=== PATIENT | male | born 1960 | race Caucasian/White ===

== ENCOUNTER 2020-10-23 09:54 | Observation (INO) | payer BC ==
[2020-10-23] MEDS ORDERED: ASPIRIN 81 MG PO STA (10:14)
--- NOTE | 2020-10-23 10:34 | ED ---
General Adult HPI - General Chief complaint: Chest Pain Stated complaint: burning in chest Time Seen by Provider: 10/23/20 10:02 Source: patient, RN notes reviewed Mode of arrival: ambulatory Limitations: no limitations - History of Present Illness Initial comments: This a 59-year-old male presents emergency Department chief complaint of progressive chest pain. Patient states he's been having intermittent symptoms states he's had 4 episodes morning. He states that when he comes that the burning sensation in his chest and becomes very diaphoretic. Patient states nonradiating type pain. Patient has no prior coronary disease including risk factors hyperlipidemia hypertension diabetes smoking history. Patient states is on no current medications. Patient did have blood work and EKG by primary care physician yesterday and was told that he did not have a heart attack. Patient denies any abdominal pain denies any nausea vomiting take swelling leg pain. Patient took 2 baby aspirin this morning. - Related Data Allergies Allergy/AdvReac Type Severity Reaction Status Date / Time No Known Allergies Allergy Verified 10/23/20 10:01 Review of Systems ROS Statement: Those systems with pertinent positive or pertinent negative responses have been documented in the HPI. ROS Other: All systems not noted in ROS Statement are negative. Past Medical History Past Medical History: No Reported History History of Any Multi-Drug Resistant Organisms: None Reported Past Surgical History: No Surgical Hx Reported Past Psychological History: No Psychological Hx Reported Smoking Status: Never smoker Past Alcohol Use History: None Reported, Occasional Past Drug Use History: None Reported General Exam Limitations: no limitations General appearance: alert, in no apparent distress Head exam: Present: atraumatic, normocephalic, normal inspection Eye exam: Present: normal appearance, PERRL, EOMI. Absent: scleral icterus, conjunctival injection, periorbital swelling ENT exam: Present: normal exam, normal oropharynx, mucous membranes moist Neck exam: Present: normal inspection, full ROM. Absent: tenderness, meningismus, lymphadenopathy Respiratory exam: Present: normal lung sounds bilaterally. Absent: respiratory distress, wheezes, rales, rhonchi, stridor Cardiovascular Exam: Present: regular rate, normal rhythm, normal heart sounds. Absent: systolic murmur, diastolic murmur, rubs, gallop, clicks GI/Abdominal exam: Present: soft, normal bowel sounds. Absent: distended, tenderness, guarding, rebound, rigid Back exam: Absent: CVA tenderness (R), CVA tenderness (L) Neurological exam: Present: alert, oriented X3 Skin exam: Present: warm, dry, intact, normal color. Absent: rash Course Vital Signs 10/23/20 10/23/20 09:57 11:07 Temperature 98 F Pulse Rate 72 61 Respiratory 18 18 Rate Blood Pressure 152/70 122/77 O2 Sat by Pulse 99 98 Oximetry EKG Findings - EKG Comments: EKG Findings:: EKG 4-10:17 sinus rhythm with noted PAC, rate of 67 HI 1:30 QRS 86 QT/QTC 42/424 Medical Decision Making - Medical Decision Making Patient's labwork reviewed patient's d-dimer and troponin are negative there no acute EKG changes though there is concern for underlying cardiac disease. Patient will be admitted for cardiac evaluation probable stress test with echocardiogram. - Lab Data Result diagrams: 10/23/20 10:33 10/23/20 10:33 Lab Results 10/23/20 10/23/20 10/23/20 Range/Units 10:33 10:33 10:33 WBC 7.1 (3.8-10.6) k/uL RBC 5.44 (4.30-5.90) m/uL Hgb 17.1 (13.0-17.5) gm/dL Hct 51.0 (39.0-53.0) % MCV 93.7 (80.0-100.0) fL MCH 31.5 (25.0-35.0) pg MCHC 33.6 (31.0-37.0) g/dL RDW 13.0 (11.5-15.5) % Plt Count 219 (150-450) k/uL MPV 7.7 Neutrophils % 75 % Lymphocytes % 15 % Monocytes % 6 % Eosinophils % 2 % Basophils % 1 % Neutrophils # 5.3 (1.3-7.7) k/uL Lymphocytes # 1.1 (1.0-4.8) k/uL Monocytes # 0.4 (0-1.0) k/uL Eosinophils # 0.1 (0-0.7) k/uL Basophils # 0.0 (0-0.2) k/uL PT 9.9 (9.0-12.0) sec INR 0.9 (<1.2) APTT 22.1 (22.0-30.0) sec D-Dimer 0.28 (<0.60) mg/L FEU Sodium 139 (137-145) mmol/L Potassium 4.3 (3.5-5.1) mmol/L Chloride 106 (98-107) mmol/L Carbon Dioxide 23 (22-30) mmol/L Anion Gap 10 mmol/L BUN 19 (9-20) mg/dL Creatinine 0.86 (0.66-1.25) mg/dL Est GFR (CKD-EPI)AfAm >90 (>60 ml/min/1.73 sqM) Est GFR (CKD-EPI)NonAf >90 (>60 ml/min/1.73 sqM) Glucose 103 H (74-99) mg/dL Calcium 9.2 (8.4-10.2) mg/dL Magnesium 2.1 (1.6-2.3) mg/dL Total Bilirubin 0.6 (0.2-1.3) mg/dL AST 31 (17-59) U/L ALT 30 (4-49) U/L Alkaline Phosphatase 73 (38-126) U/L Troponin I (0.000-0.034) ng/mL NT-Pro-B Natriuret Pep pg/mL Total Protein 7.1 (6.3-8.2) g/dL Albumin 4.4 (3.5-5.0) g/dL Lipase 189 (23-300) U/L 10/23/20 10/23/20 Range/Units 10:33 10:33 WBC (3.8-10.6) k/uL RBC (4.30-5.90) m/uL Hgb (13.0-17.5) gm/dL Hct (39.0-53.0) % MCV (80.0-100.0) fL MCH (25.0-35.0) pg MCHC (31.0-37.0) g/dL RDW (11.5-15.5) % Plt Count (150-450) k/uL MPV Neutrophils % % Lymphocytes % % Monocytes % % Eosinophils % % Basophils % % Neutrophils # (1.3-7.7) k/uL Lymphocytes # (1.0-4.8) k/uL Monocytes # (0-1.0) k/uL Eosinophils # (0-0.7) k/uL Basophils # (0-0.2) k/uL PT (9.0-12.0) sec INR (<1.2) APTT (22.0-30.0) sec D-Dimer (<0.60) mg/L FEU Sodium (137-145) mmol/L Potassium (3.5-5.1) mmol/L Chloride (98-107) mmol/L Carbon Dioxide (22-30) mmol/L Anion Gap mmol/L BUN (9-20) mg/dL Creatinine (0.66-1.25) mg/dL Est GFR (CKD-EPI)AfAm (>60 ml/min/1.73 sqM) Est GFR (CKD-EPI)NonAf (>60 ml/min/1.73 sqM) Glucose (74-99) mg/dL Calcium (8.4-10.2) mg/dL Magnesium (1.6-2.3) mg/dL Total Bilirubin (0.2-1.3) mg/dL AST (17-59) U/L ALT (4-49) U/L Alkaline Phosphatase (38-126) U/L Troponin I <0.012 (0.000-0.034) ng/mL NT-Pro-B Natriuret Pep 212 pg/mL Total Protein (6.3-8.2) g/dL Albumin (3.5-5.0) g/dL Lipase (23-300) U/L Disposition Clinical Impression: Chest pain Disposition: ADMITTED IP TO THIS [facility] Referrals: Chi Marquez DO [Primary Care Provider] - 1-2 days
[2020-10-23 10:42] LABS: Basophils % (A) 1 %; Eosinophils # (A) 0.1 k/uL (0-0.7); Eosinophils % (A) 2 %; HGB 17.1 gm/dL (13.0-17.5); Lymphocytes # (A) 1.1 k/uL (1.0-4.8); Lymphocytes % (A) 15 %; MCH 31.5 pg (25.0-35.0); MCHC 33.6 g/dL (31.0-37.0); MCV 93.7 fL (80.0-100.0); Mean Platelet Volume 7.7; Monocytes # (A) 0.4 k/uL (0-1.0); Monocytes % (A) 6 %; Neutrophils # (A) 5.3 k/uL (1.3-7.7); Neutrophils % (A) 75 %; Platelet Count 219 k/uL (150-450); RBC 5.44 m/uL (4.30-5.90); WBC 7.1 k/uL (3.8-10.6)
--- NOTE | 2020-10-23 10:45 | XR ---
EXAMINATION TYPE: XR chest 2V DATE OF EXAM: 10/23/2020 COMPARISON: NONE HISTORY: Chest pain and burning sensation for one week. TECHNIQUE: Frontal and lateral views of the chest are obtained. FINDINGS: There is no focal air space opacity, pleural effusion, or pneumothorax seen. The cardiac silhouette size is within normal limits. Overlying EKG leads. The osseous structures are intact. IMPRESSION: No acute cardiopulmonary process.
[2020-10-23 10:53] LABS: ALT 30 U/L (4-49); AST 31 U/L (17-59); African American GFR (CKD) >90 (>60 ml/min/1.73 sqM); Albumin 4.4 g/dL (3.5-5.0); Alkaline Phosphatase 73 U/L (38-126); Anion Gap 10 mmol/L; Blood Urea Nitrogen 19 mg/dL (9-20); Calcium 9.2 mg/dL (8.4-10.2); Carbon Dioxide 23 mmol/L (22-30); Chloride 106 mmol/L (98-107); Glucose 103 mg/dL (74-99); Lipase 189 U/L (23-300); Magnesium 2.1 mg/dL (1.6-2.3); Non-African American GFR(CKD) >90 (>60 ml/min/1.73 sqM); Potassium 4.3 mmol/L (3.5-5.1); Sodium 139 mmol/L (137-145); Total Bilirubin 0.6 mg/dL (0.2-1.3); Total Protein 7.1 g/dL (6.3-8.2)
[2020-10-23 10:55] LABS: D-Dimer 0.28 mg/L FEU (<0.60); INR 0.9 (<1.2); Partial Thromboplastin Time 22.1 sec (22.0-30.0); Prothrombin Time 9.9 sec (9.0-12.0)
[2020-10-23] MEDS ORDERED: NITROGLYCERIN SL TABS 0.4 MG TAB SUBLINGUAL PRN (11:19)
[2020-10-23] MEDS ORDERED: HEPARIN SODIUM,PORCINE 5,000 UNIT/ML 1 ML VIAL IV ONE (11:19)
[2020-10-23] MEDS ORDERED: HEPARIN SODIUM,PORCINE 5,000 UNIT/ML 1 ML VIAL IV PRN (11:19)
[2020-10-23] MEDS ORDERED: HEPARIN SOD,PORK IN 0.45% NACL 25,000 UNIT in 0.45% NACL 1 250ML.BAG IV SCH (11:30)
--- NOTE | 2020-10-23 14:02 | P.CRDCN ---
History of Present Illness Consult date: 10/23/20 History of present illness: CHIEF COMPLAINT: Chest pain HISTORY OF PRESENT ILLNESS: This is a 59-year-old male with no significant past medical history. 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 We have been asked to see the patient in consultation for chest pain. Patient examined at the bedside. Patient states he began having chest pain last while at work. He describes the pain as a burning sensation in the middle of his chest. He denies any shortness of breath. He denies any radiation of the pain. Denies any nausea or vomiting. He does report spitting up some phlegm when he has these episodes. He reports taking Tums occasionally over the past week which has not helped his symptoms. He states the pain is not associated with food. Patient states he went to see his primary care physician yesterday who completed an EKG and was told it was unremarkable. He was started on omeprazole and scheduled for an outpatient stress test next week. Patient states he woke up this morning at 4 AM with a significant burning sensation in the middle of his chest. The patient states he proceeded to go to work this morning down in [place] and he had another episode of burning in his chest so he decided to come home from work and came to the hospital for further evaluation. At the time of exam, the patient is not having any chest pain. The patient denies any family history of coronary artery disease. He is a non-smoker. He reports minimal alcohol use. DIAGNOSTICS: EKG reveals sinus mechanism with no signs of acute ischemia Chest xray negative for acute process Laboratory data: WBC 7.1. Hemoglobin 17.1. Platelet count 219. D-dimer 0.28. Sodium 139. Potassium 4.3. BUN 19. Creatinine 0.86. Magnesium 2.1. Troponin negative 1. BNP 212. Current home cardiac medications include none REVIEW OF SYSTEMS: At the time of my exam: CONSTITUTIONAL: Denies fever or chills. HEENT: Denies blurred vision, vision changes, or eye pain. Denies hemoptysis CARDIOVASCULAR: Denies chest pain, orthopnea, PND or palpitations RESPIRATORY: No shortness of breath. GASTROINTESTINAL: Denies abdominal pain. Denies nausea or vomiting. HEMATOLOGIC: Denies bleeding disorders. GENITOURINARY: Denies any blood in urine. SKIN: Denies pruitis. Denies rash. PHYSICAL EXAM: VITAL SIGNS: Reviewed. GENERAL: Well-developed in no acute distress. HEENT: Head is normocephalic. Pupils are equal, round. Sclerae anicteric. Mucous membranes of the mouth are moist. Neck supple. No JVD or thyromegaly LUNGS: Respirations even and unlabored. Lungs essentially clear to auscultation bilaterally. HEART: Regular rate and rhythm. S1 and S2 heard. ABDOMEN: Soft. Nondistended. Nontender. EXTREMITIES: Normal range of motion. No clubbing or cyanosis. Peripheral pulses intact. No lower extremity edema NEUROLOGIC: Awake and alert. Oriented x 3. ASSESSMENT: Chest pain, atypical for angina PLAN: Continue IV heparin Trend troponin levels Obtain 2-D echo to assess cardiac structure and function If troponin levels continue to be negative, patient will be scheduled for stress echo tomorrow If stress test is negative, recommend GI workup Further recommendations pending patient course Nurse practitioner note has been reviewed by physician. Signing provider agrees with the documented findings, assessment, and plan of care. 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 Medications and Allergies Home Medications Medication Instructions Recorded Confirmed Type Aspirin EC [Ecotrin Low Dose] 162 mg PO AC-BRKFST 10/23/20 10/23/20 History Omeprazole 40 mg PO AC-BRKFST 10/23/20 10/23/20 History Allergies Allergy/AdvReac Type Severity Reaction Status Date / Time No Known Allergies Allergy Verified 10/23/20 11:18 Physical Exam Vitals: Vital Signs Temp Pulse Resp BP Pulse Ox 10/23/20 11:13 67 18 122/77 98 10/23/20 11:07 61 18 122/77 98 10/23/20 09:57 98 F 72 18 152/70 99 Intake and Output 10/22/20 10/23/20 10/23/20 22:59 06:59 14:59 Other: Weight 95.254 kg Results 10/23/20 10:33 10/23/20 10:33 Cardiac Enzymes 10/23/20 10/23/20 Range/Units 10:33 10:33 AST 31 (17-59) U/L Troponin I <0.012 (0.000-0.034) ng/mL Coagulation 10/23/20 Range/Units 10:33 PT 9.9 (9.0-12.0) sec APTT 22.1 (22.0-30.0) sec CBC 10/23/20 Range/Units 10:33 WBC 7.1 (3.8-10.6) k/uL RBC 5.44 (4.30-5.90) m/uL Hgb 17.1 (13.0-17.5) gm/dL Hct 51.0 (39.0-53.0) % Plt Count 219 (150-450) k/uL Comprehensive Metabolic Panel 10/23/20 Range/Units 10:33 Sodium 139 (137-145) mmol/L Potassium 4.3 (3.5-5.1) mmol/L Chloride 106 (98-107) mmol/L Carbon Dioxide 23 (22-30) mmol/L BUN 19 (9-20) mg/dL Creatinine 0.86 (0.66-1.25) mg/dL Glucose 103 H (74-99) mg/dL Calcium 9.2 (8.4-10.2) mg/dL AST 31 (17-59) U/L ALT 30 (4-49) U/L Alkaline Phosphatase 73 (38-126) U/L Total Protein 7.1 (6.3-8.2) g/dL Albumin 4.4 (3.5-5.0) g/dL Current Medications Generic Name Dose Route Start Last Admin Trade Name Freq PRN Reason Stop Dose Admin Aspirin 325 mg 10/24/20 09:00 Aspirin 325 Mg Tab PO DAILY DEMOND Heparin Sodium (Porcine) 0 unit 10/23/20 11:19 Heparin Sodium,Porcine 5,000 Unit/Ml 1 Ml Vial IV Q6HR PRN Low PTT Protocol Heparin Sodium/Sodium Chloride 250 mls @ 10 mls/hr 10/23/20 11:30 10/23/20 11:41 25,000 unit/ Sodium Chloride IV 10.498 units/kg/hr .Q24H DEMOND 10 mls/hr Administration Protocol 10.498 UNITS/KG/HR Nitroglycerin 0.4 mg 10/23/20 11:19 Nitroglycerin Sl Tabs 0.4 Mg Tab SUBLINGUAL Q5M PRN Chest Pain Intake and Output 10/22/20 10/23/20 10/23/20 22:59 06:59 14:59 Other: Weight 95.254 kg Patient Weight 10/24/20 06:59 Weight 95.254 kg 10/23/20 10:33 10/23/20 10:33
--- NOTE | 2020-10-23 14:14 | P.HPIM ---
History of Present Illness Patient is a pleasant 59-year-old male came in with complaints of chest pain patient had a chest pain going on for about 4 days with varying severity mostly retrosternal burning sensation and epigastric burning sensation nonradiating, no associated nausea or vomiting. Patient chest pain is not associated with food nonpleuritic in nature patient used Tums in the past with some relief. Patient started having the same pain today morning when he woke up and then at his work. Patient denied any fever chills patient denied any cough. Before echo episode is associated with diaphoresis. Patient had an EKG which did not show any significant abnormality chest x-ray did not show any pneumonia. Denies any significant family history of carotid disease and patient is not a smoker. Review of Systems REVIEW OF SYSTEMS: CONSTITUTIONAL: No fever, no malaise, no fatigue. HEENT: No recent visual problems or hearing problems. Denied any sore throat. CARDIOVASCULAR: No orthopnea, PND, no palpitations, no syncope. PULMONARY: No shortness of breath, no cough, no hemoptysis. GASTROINTESTINAL: No diarrhea, no nausea, no vomiting, no abdominal pain. NEUROLOGICAL: No headaches, no weakness, no numbness. HEMATOLOGICAL: Denies any bleeding or petechiae. GENITOURINARY: Denies any burning micturition, frequency, or urgency. MUSCULOSKELETAL/RHEUMATOLOGICAL: Denies any joint pain, swelling, or any muscle pain. ENDOCRINE: Denies any polyuria or polydipsia. The rest of the 14-point review of systems is negative. Past Medical History Past Medical History: No Reported History History of Any Multi-Drug Resistant Organisms: None Reported Past Surgical History: No Surgical Hx Reported Additional Past Surgical History / Comment(s): tonsils out as child, Had Colonoscopys with Dr Santiago Past Anesthesia/Blood Transfusion Reactions: No Reported Reaction Past Psychological History: No Psychological Hx Reported Smoking Status: Never smoker Past Alcohol Use History: None Reported, Occasional Past Drug Use History: None Reported - Past Family History Mother Family Medical History: Cancer Additional Family Medical History / Comment(s): both breasts removed Father Additional Family Medical History / Comment(s): killed Auto accident by drunk flatbed driver Medications and Allergies Home Medications Medication Instructions Recorded Confirmed Type Aspirin EC [Ecotrin Low Dose] 162 mg PO AC-BRKFST 10/23/20 10/23/20 History Omeprazole 40 mg PO AC-BRKFST 10/23/20 10/23/20 History Allergies Allergy/AdvReac Type Severity Reaction Status Date / Time No Known Allergies Allergy Verified 10/23/20 11:18 Physical Exam Vitals: Vital Signs Temp Pulse Pulse Resp BP BP Pulse Ox 10/23/20 12:34 98.4 F 63 16 136/87 97 10/23/20 12:25 97.4 F L 64 18 177/104 100 10/23/20 11:13 67 18 122/77 98 10/23/20 11:07 61 18 122/77 98 10/23/20 09:57 98 F 72 18 152/70 99 Intake and Output 10/22/20 10/23/20 10/23/20 22:59 06:59 14:59 Other: Weight 95.254 kg PHYSICAL EXAMINATION: GENERAL: The patient is alert and oriented x3, not in any acute distress. Well developed, well nourished. HEENT: Pupils are round and equally reacting to light. EOMI. No scleral icterus. No conjunctival pallor. Normocephalic, atraumatic. No pharyngeal erythema. No thyromegaly. CARDIOVASCULAR: S1 and S2 present. No murmurs, rubs, or gallops. PULMONARY: Chest is clear to auscultation, no wheezing or crackles. ABDOMEN: Soft, nontender, nondistended, normoactive bowel sounds. No palpable organomegaly. MUSCULOSKELETAL: No joint swelling or deformity. EXTREMITIES: No cyanosis, clubbing, or pedal edema. NEUROLOGICAL: Gross neurological examination did not reveal any focal deficits. SKIN: No rashes. Results CBC & Chem 7: 10/23/20 10:33 10/23/20 10:33 Labs: Abnormal Lab Results - Last 24 Hours (Table) 10/23/20 Range/Units 10:33 Glucose 103 H (74-99) mg/dL Thrombosis Risk Factor Assmnt - Choose All That Apply Each Factor Represents 1 point: Obesity (BMI >25) Other Risk Factors: Yes Each Risk Factor Represents 2 Points: Age 61-74 years Thrombosis Risk Factor Assessment Total Risk Factor Score: 3 Thrombosis Risk Factor Assessment Level: Moderate Risk Assessment and Plan Plan: - chest pain: We will rule out acute coronary syndromes patient will undergo stress test tomorrow, considering the nature the chest pain patient will be started on Protonix IV as the other differential being Peptic ulcer disease. -Rule out pulmonary embolism with d-dimer which was negative -Obesity
[2020-10-23] MEDS: PANTOPRAZOLE 40 MG/10 ML VIAL IVP SCH (20:05)
[2020-10-24 06:14] LABS: Mean Platelet Volume 8.3; Platelet Count 207 k/uL (150-450)
[2020-10-24] MEDS: PANTOPRAZOLE 40 MG/10 ML VIAL IVP SCH ×2 (07:27→20:51)
[2020-10-24] MEDS ORDERED: PANTOPRAZOLE 40 MG TABLET PO SCH (07:30)
[2020-10-24] MEDS ORDERED: ASPIRIN 81 MG PO SCH (09:00)
[2020-10-24] MEDS ORDERED: ASPIRIN 325 MG TAB PO SCH (09:00)
[2020-10-24 10:49] LABS: Chol/HDL Ratio 3.76
[2020-10-24] MEDS ORDERED: HEPARIN SODIUM,PORCINE 5,000 UNIT/ML 1 ML VIAL IV ONE (11:42)
[2020-10-24] MEDS ORDERED: HEPARIN SODIUM,PORCINE 5,000 UNIT/ML 1 ML VIAL IV PRN (11:42)
[2020-10-24] MEDS ORDERED: HEPARIN SOD,PORK IN 0.45% NACL 25,000 UNIT in 0.45% NACL 1 250ML.BAG IV SCH (11:45)
[2020-10-24] MEDS ORDERED: ALPRAZolam 0.25 MG TAB PO PRN (11:48)
[2020-10-24] MEDS ORDERED: ASPIRIN 325 MG TAB PO STA (11:48)
[2020-10-24] MEDS ORDERED: ALPRAZolam 0.5 MG TAB PO PRN (11:48)
[2020-10-24] MEDS ORDERED: SODIUM CHLORIDE 0.9% 1,000 ML in EMPTY BAG 1 BAG IV ONE (11:48)
[2020-10-24] MEDS ORDERED: NITROGLYCERIN SL TABS 0.4 MG TAB SUBLINGUAL PRN ×2 (11:48→13:37)
[2020-10-24] MEDS ORDERED: ATORVASTATIN 80 MG TAB PO STA (11:48)
[2020-10-24] MEDS ORDERED: LIDOCAINE 1% INJ 10MG/ML (20 ML MDV) ONE (12:18)
[2020-10-24] MEDS ORDERED: VERAPAMIL 2.5 MG/ML 2 ML AMP ONE (12:18)
[2020-10-24 12:25] LABS: Basophils % (A) 1 %; Eosinophils # (A) 0.1 k/uL (0-0.7); Eosinophils % (A) 1 %; HCT 50.7 % (39.0-53.0); HGB 16.4 gm/dL (13.0-17.5); Lymphocytes # (A) 0.9 k/uL (1.0-4.8); Lymphocytes % (A) 13 %; MCH 30.9 pg (25.0-35.0); MCHC 32.5 g/dL (31.0-37.0); MCV 95.3 fL (80.0-100.0); Monocytes # (A) 0.4 k/uL (0-1.0); Monocytes % (A) 5 %; Neutrophils # (A) 5.7 k/uL (1.3-7.7); Neutrophils % (A) 79 %; Platelet Count 225 k/uL (150-450); RBC 5.32 m/uL (4.30-5.90); RDW 13.5 % (11.5-15.5); WBC 7.2 k/uL (3.8-10.6)
--- NOTE | 2020-10-24 12:27 | P.PN ---
Subjective Progress Note Date: 10/24/20 CHIEF COMPLAINT: Chest pain HISTORY OF PRESENT ILLNESS: 10/23/2020 This is a 59-year-old male with no significant past medical history. 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 We have been asked to see the patient in consultation for chest pain. Patient examined at the bedside. Patient states he began having chest pain last while at work. He describes the pain as a burning sensation in the middle of his chest. He denies any shortness of b reath. He denies any radiation of the pain. Denies any nausea or vomiting. He does report spitting up some phlegm when he has these episodes. He reports taking Tums occasionally over the past week which has not helped his symptoms. He states the pain is not associated with food. Patient states he went to see his primary care physician yesterday who completed an EKG and was told it was unremarkable. He was started on omeprazole and scheduled for an outpatient stress test next week. Patient states he woke up this morning at 4 AM with a significant burning sensation in the middle of his chest. The patient states he proceeded to go to work this morning down in [place] and he had another episode of burning in his chest so he decided to come home from work and came to the hospital for further evaluation. At the time of exam, the patient is not having any chest pain. The patient denies any family history of coronary artery disease. He is a non-smoker. He reports minimal alcohol use. 10/24/2020 Patient examined this morning at the bedside. Patient denies chest pain or pressure. Denies shortness of breath. Troponins negative x 3. PHYSICAL EXAM: VITAL SIGNS: Reviewed. GENERAL: Well-developed in no acute distress. HEENT: Head is normocephalic. Pupils are equal, round. Sclerae anicteric. Mucous membranes of the mouth are moist. Neck supple. No JVD or thyromegaly LUNGS: Respirations even and unlabored. Lungs essentially clear to auscultation bilaterally. HEART: Regular rate and rhythm. S1 and S2 heard. EXTREMITIES: Normal range of motion. No clubbing or cyanosis. Peripheral pulses intact. No lower extremity edema ASSESSMENT: Chest pain Abnormal stress test PLAN: Patient with positive stress test this morning 2D echo ordered. Await results Patient to undergo cardiac cath with Dr. Goodrich this afternoon Nurse practitioner note has been reviewed by physician. Signing provider agrees with the documented findings, assessment, and plan of care. Objective - Vital Signs Vital signs: Vital Signs Temp 97.6 F 10/24/20 07:25 Pulse 67 10/24/20 08:00 Resp 16 10/24/20 08:00 BP 121/80 10/24/20 07:25 Pulse Ox 97 10/24/20 07:25 Intake & Output 10/23/20 10/24/20 10/24/20 18:59 06:59 18:59 Intake Total 127.167 86.416 Balance 127.167 86.416 Weight 95.254 kg 95.25 kg Intake: IV 60 Heparin Sod,Pork in 0.45% 60 NaCl 25,000 unit In 0.45 % NaCl 1 250ml.bag @ 10. 498 UNITS/KG/HR 10 mls/hr IV .Q24H DEMOND Rx#: [id number] Intake, IV Titration 67.167 86.416 Amount Heparin Sod,Pork in 0.45% 67.167 86.416 NaCl 25,000 unit In 0.45 % NaCl 1 250ml.bag @ 10. 498 UNITS/KG/HR 10 mls/hr IV .Q24H DEMOND Rx#: [id number] Other: Voiding Method Toilet Toilet Toilet # Voids 2 - Labs CBC & Chem 7: 10/24/20 05:29 10/23/20 10:33 Labs: Abnormal Lab Results - Last 24 Hours (Table) 10/23/20 10/24/20 10/24/20 Range/Units 17:48 00:04 05:29 APTT 82.7 H 90.6 H 69.2 H (22.0-30.0) sec
[2020-10-24 12:30] LABS: Partial Thromboplastin Time 29.2 sec (22.0-30.0); Prothrombin Time 10.4 sec (9.0-12.0)
--- NOTE | 2020-10-24 12:30 | ECHOF ---
Referral Reason:chest pain MEASUREMENTS -------- HEIGHT: 175.3 cm WEIGHT: 95.3 kg BP: 177/104 RVIDd: 3.4 cm (< 3.3) IVSd: 1.2 cm (0.6 - 1.1) LVIDd: 3.7 cm (3.9 - 5.3) LVPWd: 1.1 cm (0.6 - 1.1) IVSs: 1.7 cm LVIDs: 2.4 cm LVPWs: 1.4 cm LA Diam: 3.1 cm (2.7 - 3.8) LAESV Index (A-L): 23.84 ml/m Ao Diam: 3.4 cm (2.0 - 3.7) AV Cusp: 2.3 cm (1.5 - 2.6) MV EXCURSION: 16.396 mm (> 18.000) MV EF SLOPE: 111 mm/s (70 - 150) EPSS: 0.1 cm MV E Vasile: 0.71 m/s MV DecT: 228 ms MV A Vasile: 0.69 m/s MV E/A Ratio: 1.02 RAP: 5.00 mmHg RVSP: 26.95 mmHg FINDINGS -------- Sinus rhythm. This was a technically adequate study. The left ventricular size is normal. There is borderline concentric left ventricular hypertrophy. Overall left ventricular systolic function is normal with, an EF between 55 - 60 %. The diastolic filling pattern is normal for the age of the patient {E/E'}. The right ventricle is mildly enlarged. Normal LA size by volume 22+/-6 ml/m2. The right atrial size is normal. Interatrial and interventricular septum intact. The aortic valve is trileaflet, and appears structurally normal. No aortic stenosis or regurgitation. The mitral valve is normal. Mild mitral regurgitation is present. The tricuspid valve appears structurally normal. Trace tricuspid regurgitation present. Right kamilah tricular systolic pressure is normal at < 35 mmHg. There is no pulmonic regurgitation present. The aortic root size is normal. Normal inferior vena cava with normal inspiratory collapse consistent with estimated right atrial pre ssure of 5 mmHg. There is no pericardial effusion. CONCLUSIONS -------- 1. There is borderline concentric left ventricular hypertrophy. 2. Overall left ventricular systolic function is normal with, an EF between 55 - 60 %. 3. The right ventricle is mildly enlarged. 4. The aortic valve is trileaflet, and appears structurally normal. No aortic stenosis or regurgitati on. 5. Mild mitral regurgitation is present. 6. Trace tricuspid regurgitation present. 7. There is no pericardial effusion. GRAPHIC DESIGN ASSISTANT: ANTHONY Muniz
[2020-10-24] MEDS ORDERED: fentaNYL (PF) 50 MCG/ML 2 ML AMP ONE (12:40)
[2020-10-24] MEDS ORDERED: HEPARIN SODIUM 1,000 UN/ML (10ML VL) ONE (12:40)
[2020-10-24] MEDS ORDERED: IV FLUID CONTINUATION 800 ML IV ONE (12:44)
[2020-10-24] MEDS ORDERED: fentaNYL (PF) 50 MCG/ML 2 ML AMP IVP ONE (12:54)
[2020-10-24] MEDS: MIDAZOLAM 2 MG/2 ML VIAL IVP ONE ×2 (12:55→12:58)
[2020-10-24] MEDS ORDERED: LIDOCAINE 1% INJ 10MG/ML (20 ML MDV) SQ ONE (12:55)
[2020-10-24] MEDS ORDERED: VERAPAMIL SYRINGE (5 MG/10 ML) INTRAARTER ONE (12:59)
[2020-10-24] MEDS ORDERED: CLOPIDOGREL 75 MG TAB ONE (13:06)
[2020-10-24] MEDS ORDERED: HEPARIN SODIUM 1,000 UN/ML (10ML VL) IV ONE (13:07)
[2020-10-24] MEDS ORDERED: CLOPIDOGREL 75 MG TAB PO ONE (13:11)
[2020-10-24] MEDS ORDERED: IOPAMIDOL-370 125ML BTL INJ ONE (13:22)
--- NOTE | 2020-10-24 13:30 | P.PN ---
Subjective Progress Note Date: 10/24/20 This is a 59-year-old gentleman admitted with new onset, fluctuating midsternal burning that started last , accompanied by bilateral arm tightness, burping that which spontaneously resolved. Denied diaphoresis, shortness of breath. Denies nausea vomiting or diarrhea. Denies abdominal pain. Denied lightheadedness, dizziness or focal deficits. Evaluated by cardiology, maintained on heparin drip, scheduled for stress test this morning . Objective - Vital Signs Vital signs: Vital Signs Temp 97.6 F 10/24/20 07:25 Pulse 67 10/24/20 08:00 Resp 16 10/24/20 08:00 BP 121/80 10/24/20 07:25 Pulse Ox 97 10/24/20 07:25 Intake & Output 10/23/20 10/24/20 10/24/20 18:59 06:59 18:59 Intake Total 127.167 86.416 Balance 127.167 86.416 Weight 95.254 kg 95.25 kg Intake: IV 60 Heparin Sod,Pork in 0.45% 60 NaCl 25,000 unit In 0.45 % NaCl 1 250ml.bag @ 10. 498 UNITS/KG/HR 10 mls/hr IV .Q24H DEMOND Rx#: [id number] Intake, IV Titration 67.167 86.416 Amount Heparin Sod,Pork in 0.45% 67.167 86.416 NaCl 25,000 unit In 0.45 % NaCl 1 250ml.bag @ 10. 498 UNITS/KG/HR 10 mls/hr IV .Q24H DEMOND Rx#: [id number] Other: Voiding Method Toilet Toilet Toilet # Voids 2 - Exam PHYSICAL EXAM: VITAL SIGNS: [As above] GENERAL: Sitting up in bed, no acute distress HEENT: Conjunctivae normal. eyes normal. Oral mucosa dry NECK: No JVD. No thyroid enlargement. CARDIOVASCULAR: S1, S2 regular.. No murmur RESPIRATION: Breath sounds diminished in the bases. No rhonchi or crackles. No bronchial breathing. ABDOMEN: Soft, nontender . No guarding. no masses palpable. No ascites, No hepatosplenomegaly.Bowel sounds heard. LEGS: No edema. no swelling PSYCHIATRY: Alert and oriented X3, mood and affect normal. NERVOUS SYSTEM: Cranial N 2-12 grossly normal. Moves all 4 limbs. Diffuse weakness No focal deficits. Strength and sensation grossly intact.. Skin: Warm and dry, no rash - Labs CBC & Chem 7: 10/24/20 11:55 10/23/20 10:33 Labs: Abnormal Lab Results - Last 24 Hours (Table) 10/23/20 10/24/20 10/24/20 Range/Units 17:48 00:04 05:29 Lymphocytes # (1.0-4.8) k/uL APTT 82.7 H 90.6 H 69.2 H (22.0-30.0) sec 10/24/20 Range/Units 11:55 Lymphocytes # 0.9 L (1.0-4.8) k/uL APTT (22.0-30.0) sec Assessment and Plan Assessment: Chest pain, status post abnormal stress test, cardiac cath pending. Obesity, BMI 31 Plan: Continue on current medication regime ,monitoring and symptomatic treatment. Completed stress test, verbally reported as abnormal and is now scheduled for cardiac catheterization. Follow with cardiology closely. The impression and plan of care has been dictated as directed. : I performed a history and examination of this patient, discussed the same with the dictator. I agree with the dictator's note ,documented as a scribe. Any additional findings or plans will be noted.
[2020-10-24] MEDS ORDERED: MAG HYDROX/AL HYDROX/SIMETH 30 ML CUP PO PRN (13:37)
[2020-10-24] MEDS ORDERED: ZOLPIDEM 5 MG TAB PO PRN (13:37)
[2020-10-24] MEDS ORDERED: ATROPINE SULFATE 0.1 MG/ML 10ML SYRINGE IV PRN (13:37)
[2020-10-24] MEDS ORDERED: RX INFO: IV CONTRAST WAS GIVEN 1 EACH MISC MISCELLANE PRN (13:37)
[2020-10-24] MEDS ORDERED: SODIUM CHLORIDE 0.9% 1,000 ML IV SCH (13:45)
--- NOTE | 2020-10-24 14:15 | ECHOS ---
STRESS ECHOCARDIOGRAM LUMASON: N/A Vial INDICATIONS: Chest pain MEDICATIONS: BASELINE HEART RATE: 65 BASELINE BLOOD PRESSURE: 141/86 MAXIMUM HEART RATE: 149 MAXIMUM BLOOD PRESSURE: 180/90 85% MPHR: 135 100% MPHR: 159 METS: 3 MAXIMUM STAGE REACHED: 8.3 TOTAL EXERCISE TIME: 7 minutes CLINICAL INFORMATION: Baseline rhythm is sinus mechanism, rate 65, normal axis and intervals, nonspecific T- wave changes anteriorly. Baseline blood pressure 141/86 mmHg. Patient exercised on Yousif protocol for 7 minutes reaching peak rate 149 beats per minute which is equal to 94% maximum predicted heart rate. Peak blood pressure 180/90 mmHg. Test was terminated secondary to fatigue. There was no chest pain. Electrocardiograph monitoring revealed occasional PVCs. There was an ST-segment elevation in the anterior leads that improved in recovery. Baseline echocardiogram revealed normal wall motion. At peak exercise, there was anteroapical hypokinesis that improved in recovery. CONCLUSION: 1. Good exercise tolerance was strongly positive for electrocardiograph stress testing. 2. Abnormal stress test with evidence of stress-induced ischemia involving the anterior wall. MMODL / IJN: [id number] /
[2020-10-24 14:36] VITALS: BMI 31.0
--- NOTE | 2020-10-24 14:54 | CC ---
CARDIAC CATHETERIZATION REPORT Mr. Vigil 59-year-old male with known history of hyperlipidemia, who presented with symptoms of chest burning. The discomfort was not always exertion in pattern. His cardiac enzymes and EKG showed no acute changes. He subsequently underwent a stress echocardiogram revealed an anteroapical and anteroseptal reversible hypokinesis with significant ST-segment elevation. In view of that, recommendation was made regarding cardiac catheterization. The procedure as well as the risks and the complications were discussed with the patient who is in full understanding and agreement. 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 Using Xylocaine anesthesia and Seldinger technique, a 6-Surinamese sheath was introduced in the right radial artery. Selective right and left coronary angiography performed using 5-Surinamese 3.5 bend, right and left Oni catheter. Multiple views of the coronary artery including hemiaxial views were obtained. Following that, angioplasty and stenting was performed. Following that, a 5-Surinamese tight pigtail catheter was introduced in the left ventricle and pressures were calculated. Following that, catheter and sheaths were removed. Hemostasis was obtained with deployment of a TR band. There was no immediate complication. The patient is returned to his room in stable condition. Of note, the patient received 9000 units of intravenous heparin as well as intra-arterial verapamil. FINDINGS: LEFT MAIN: This is a large-sized vessel, bifurcating into left circumflex, left anterior descending artery. Left main coronary artery has no evidence of high-grade stenosis. LEFT ANTERIOR DESCENDING ARTERY: This is a large-sized vessel reaching to the apex with a wraparound apex segment giving rise to 2 diagonal branches. The second one is larger in caliber. In the proximal LAD prior to the takeoff of the second diagonal branch, there is a 95% eccentric lesion. There is a 30% to 40% plaque following in the mid segment. The rest of the vessel has no high-grade stenosis. LEFT CIRCUMFLEX: This is a dominant vessel large in caliber giving rise to a large obtuse marginal branch distally bifurcating into PDA and posterolateral segment and branches. The left circumflex as well as branches have no evidence of obstructive coronary artery disease. RIGHT CORONARY ARTERY: This is a small, nondominant vessel that has no evidence of high- grade stenosis. LEFT VENTRICULOGRAM: Left ventriculogram was not performed. HEMODYNAMICS: There was no gradient across the aortic valve. The left ventricular end-diastolic pressure was 16-20 mmHg. CONCLUSION: 1. Critical stenosis involving the proximal left anterior descending artery. 2. Left dominance. RECOMMENDATIONS: In view of finding anatomy, I recommend proceeding with angioplasty and stenting of the LAD. The procedure as well as the risks and the complications were discussed with the patient who is in full understanding and agreement. MMDESIREEL / IJN: [id number] /
--- NOTE | 2020-10-24 15:03 | PTCA ---
PERCUTANEOUSTRANS CORORONARY ANGIOGRAPHY Mr. Vigil is a 59-year-old male with a known history of hyperlipidemia, who presented with symptoms of chest discomfort and strongly abnormal stress echocardiogram underwent cardiac catheterization was found to have critical stenosis in the proximal LAD. In view of that, recommendation was made regarding angioplasty and stenting. The procedure as well as the risks and the complications were discussed with the patient who is in full understanding and agreement. PROCEDURE: A 6-Moroccan FL 3.5 guiding catheter introduced in the system. After cannulating the left main, a 0.014 balanced medium weight J-wire was advanced across the lesion positioned distally then a 2.5 x 12 mm NC Emerge balloon was advanced and 2 inflations at 10 atmospheres were done. Following that, the balloon was removed and a 3.25 x 15 mm Xience Lakisha stent was advanced, deployed and postdilated at 16 atmospheres. After the last inflation, after appropriate wait, the balloon and the guidewire were withdrawn back in the guiding catheter. Images were obtained and repeated. Those images reveal stable successful stenting. At that point, the guiding catheter, the balloon and the guidewire were removed and the left ventricular end-diastolic pressure was calculated. Following that catheter and sheath were removed. Hemostasis was obtained with deployment of a TR band. There was no immediate complication. The patient was returned to his room in stable condition. Of note, the patient received oral loading dose of clopidogrel and his ACT was monitored. He had no chest discomfort but had EKG changes that resolved. RESULTS: Successful stenting of the proximal LAD with reduction of stenosis from 95% to 0%. RECOMMENDATION: Patient will be continued on aspirin, Plavix and statin. The importance of dual antiplatelet treatment was discussed with the patient and his over the phone and they are in full understanding and agreement. Duration of sedation 35 minutes. MMODL / IJN: [id number] /
--- NOTE | 2020-10-24 15:08 | LTR ---
October 24, 2020 Re: Manjit Sánchezwendy Dear Dr. Marquez: I had the opportunity to perform cardiac catheterization and coronary angioplasty and stenting on Mr. Vigil at [facility] on the 24 of October and a full copy of the procedure note will be forwarded to you. In brief, he was found to have critical stenosis involving the proximal LAD and underwent successful stenting of that vessel. I am hopeful that this procedure will stabilize his status. Thank you again for allowing me the opportunity to participate in his care. Please feel free to call for any questions. Sincerely yours, Kuldeep Goodrich MD MMDESIREEL / APRILN: [id number] /
[2020-10-24] MEDS: METOPROLOL TARTRATE 25 MG TAB PO SCH (20:50)
[2020-10-25 01:33] VITALS: RESP 16
[2020-10-25 04:54] LABS: Basophils % (A) 1 %; Eosinophils # (A) 0.2 k/uL (0-0.7); Eosinophils % (A) 2 %; HCT 45.4 % (39.0-53.0); HGB 15.4 gm/dL (13.0-17.5); Lymphocytes # (A) 1.7 k/uL (1.0-4.8); Lymphocytes % (A) 24 %; MCHC 33.9 g/dL (31.0-37.0); MCV 94.2 fL (80.0-100.0); Mean Platelet Volume 7.7; Monocytes # (A) 0.5 k/uL (0-1.0); Monocytes % (A) 7 %; Neutrophils # (A) 4.8 k/uL (1.3-7.7); Neutrophils % (A) 65 %; Platelet Count 184 k/uL (150-450); RBC 4.82 m/uL (4.30-5.90); WBC 7.4 k/uL (3.8-10.6)
[2020-10-25] MEDS ORDERED: HEPARIN SODIUM,PORCINE 10,000 UNIT in SODIUM CHLORIDE 0.9% 1,000 ML IRRIGATION PRN (07:00)
[2020-10-25] MEDS ORDERED: HEPARIN SODIUM,PORCINE 2,500 UNIT in SODIUM CHLORIDE 0.9% 250 ML IRRIGATION PRN (07:00)
[2020-10-25] MEDS: METOPROLOL TARTRATE 25 MG TAB PO SCH (08:36)
[2020-10-25] MEDS: PANTOPRAZOLE 40 MG/10 ML VIAL IVP SCH (08:37)
[2020-10-25 08:46] VITALS: BP 119/70; PULSE 71; TEMP 97.6
[2020-10-25] MEDS ORDERED: CLOPIDOGREL 75 MG TAB PO SCH (09:00)
[2020-10-25] MEDS ORDERED: ASPIRIN 81 MG PO SCH (09:00)
[2020-10-25 09:21] LABS: African American GFR (CKD) 93.7 (60.0-200.0); Anion Gap 6.6 mmol/L (4.00-12.00); Calcium 8.8 mg/dL (8.7-10.3); Carbon Dioxide 25.4 mmol/L (21.6-31.8); Non-African American GFR(CKD) 80.9 (60.0-200.0); Potassium 4.2 mmol/L (3.5-5.5)
--- NOTE | 2020-10-25 10:03 | P.DS ---
Providers Date of admission: 10/23/20 11:26 Expected date of discharge: 10/25/20 Attending physician: Chi Marquez Consults: 10/23/20 11:19 Consult Physician Urgent Consulting Provider: Roque Cardenas Consult Reason/Comments: chest pain Do you want consulting provider notified?: Yes 10/24/20 13:37 Consult Physician Routine Consulting Provider: [facility] Consult Reason/Comments: Post Interventional patient Do you want consulting provider notified?: Already Contacted Primary care physician: Chi Marquez [facility] Course: Final Diagnoses: Chest pain, status post abnormal stress echo, status post cardiac catheterization with angioplasty and stenting of proximal LAD Hyperlipidemia Obesity, BMI 31 Hospital course:This is a 59-year-old gentleman admitted with new onset, fluctuating midsternal burning that started last , accompanied by bilateral arm tightness, burping that which spontaneously resolved. Denied diaphoresis, shortness of breath. Denies nausea vomiting or diarrhea. Denies abdominal pain. Denied lightheadedness, dizziness or focal deficits. Evaluated by cardiology, maintained on heparin drip, scheduled for stress test this morning . Stress test echocardiogram reported as abnormal, patient proceeded with cardiac catheterization , reporting critical stenosis of proximal LAD and underwent angioplasty with successful stenting of that vessel. Tolerated procedure well. Denies chest pain, palpitations or shortness of breath. Denies lightheadedness, dizziness or focal deficits. Maintained on dual antiplatelet treatment. Patient will be discharged home today pending final DC recommendations and clearance from cardiology. The impression and plan of care has been dictated as directed. : I performed a history and examination of this patient, discussed the same with the dictator. I agree with the dictator's note ,documented as a scribe. Any additional findings or plans will be noted. Patient Condition at Discharge: Stable Plan - Discharge Summary New Discharge Prescriptions: New Aspirin 81 mg PO DAILY #90 chewable Atorvastatin [Lipitor] 80 mg PO DAILY #90 tab Metoprolol Tartrate [Lopressor] 25 mg PO BID #180 tablet Nitroglycerin Sl Tabs [Nitrostat] 0.4 mg SUBLINGUAL Q5M PRN #25 tab PRN Reason: Chest Pain Clopidogrel [Plavix] 75 mg PO DAILY #90 tablet Continue Omeprazole 40 mg PO AC-BRKFST Discharge Medication List Omeprazole 40 mg PO AC-BRKFST 10/23/20 [History] Aspirin 81 mg PO DAILY #90 chewable 10/25/20 [Rx] Atorvastatin [Lipitor] 80 mg PO DAILY #90 tab 10/25/20 [Rx] Clopidogrel [Plavix] 75 mg PO DAILY #90 tablet 10/25/20 [Rx] Metoprolol Tartrate [Lopressor] 25 mg PO BID #180 tablet 10/25/20 [Rx] Nitroglycerin Sl Tabs [Nitrostat] 0.4 mg SUBLINGUAL Q5M PRN #25 tab 10/25/20 [Rx] Follow up Appointment(s)/Referral(s): Kuldeep Goodrich MD [STAFF PHYSICIAN] - 1 Week (office will call pt with appointment ) Chi Marquez DO [Primary Care Provider] - 10/29/20 10:20 am
--- NOTE | 2020-10-25 10:47 | PN ---
PROGRESS NOTE Mr. Vigil is a 59-year-old male who presented with symptoms of chest discomfort, had no evidence of acute myocardial infarction, but he has severely abnormal stress echocardiogram. He underwent cardiac catheterization was found to have critical stenosis involving the proximal LAD and underwent successful stenting of that vessel. Since yesterday he is doing well. He has no further chest pain. His breathing has been stable. He denies any dizziness or palpitation. He continued to be on aspirin once a day, Lipitor 80 mg daily, Plavix 75 mg daily, metoprolol tartrate 25 mg twice a day. PHYSICAL EXAMINATION: Blood pressure 130/70 with the heart in the 60s. LUNGS: Clear. HEART: Regular rate and rhythm. S1, S2. No S3. No rub. ABDOMEN: Soft, nontender. EXTREMITIES: No edema. Right radial no hematoma. IMPRESSION: 1. Status post stenting of the left anterior descending artery. 2. Hyperlipidemia. RECOMMENDATION: Patient will be discharged home today and followed as an outpatient. MMODL / IJN: [id number] /
[2020-10-25] MEDS ORDERED: ATORVASTATIN 80 MG TAB PO SCH (21:00)
== END 2020-10-25 11:00 | disposition home or self-care (01) ==
LOC: EC 09:54 → 6NMEDSUR 11:26
PROVIDERS: ADMIT Family Medicine; ATTEND Family Medicine
DX: I25.110 Atherosclerotic heart disease of native coronary artery with unstable angina pectoris (principal); E78.5 Hyperlipidemia, unspecified; E78.00 Pure hypercholesterolemia, unspecified; R94.39 Abnormal result of other cardiovascular function study; E66.9 Obesity, unspecified; Z68.31 Body mass index [BMI] 31.0-31.9, adult; K27.9 Peptic ulcer, site unspecified, unspecified as acute or chronic, without hemorrhage or perforation; Z79.899 Other long term (current) drug therapy; Z79.82 Long term (current) use of aspirin; Z80.3 Family history of malignant neoplasm of breast
CPT/HCPCS: 96376 ×2; 96366 ×2; 96375; 93005 ×2; 96365; 99285; 36415; 93306; 93351; 93458; 85347; 85379; 83880; 80061; 80053; 80048; 83690; 83735; 84484; 85025 ×3; 85049; 85610 ×2; 85730 ×2; 71046; G0378 ×3; C9600; C1769 ×2; C1887; C1725; C1874; C1894; J2250; J1644 ×3; J2001; J3010; C9113 ×3; Q9967

== ENCOUNTER → 2020-12-23 | Outpatient (CLI) | payer BC | END | disposition home or self-care (01) | LOC: LABWHC1 16:47 | PROVIDERS: ATTEND Family Medicine | DX: Z20.822 Contact with and (suspected) exposure to COVID-19 (principal) | CPT/HCPCS: U0003; C9803; U0005 ==

== ENCOUNTER → 2021-01-02 | Outpatient (CLI) | payer BC ==
[2021-01-02 14:55] LABS: ALT 34 U/L (4-49); AST 39 U/L (17-59); African American GFR (CKD) >90 (>60 ml/min/1.73 sqM); Albumin 3.3 g/dL (3.5-5.0); Albumin/Globulin Ratio 1.4; Alkaline Phosphatase 100 U/L (38-126); Anion Gap 5 mmol/L; Blood Urea Nitrogen 15 mg/dL (9-20); Calcium 8.4 mg/dL (8.4-10.2); Carbon Dioxide 28 mmol/L (22-30); Chloride 101 mmol/L (98-107); Globulin 2.3 g/dL; Glucose 104 mg/dL (74-99); Non-African American GFR(CKD) >90 (>60 ml/min/1.73 sqM); Potassium 4.7 mmol/L (3.5-5.1); Sodium 134 mmol/L (137-145); Total Bilirubin 0.9 mg/dL (0.2-1.3); Total Protein 5.6 g/dL (6.3-8.2)
[2021-01-02 15:00] LABS: Basophils % (A) 0 %; Eosinophils % (A) 0 %; HCT 45.7 % (39.0-53.0); HGB 15.2 gm/dL (13.0-17.5); Lymphocytes % (A) 15 %; MCH 30.6 pg (25.0-35.0); MCHC 33.2 g/dL (31.0-37.0); MCV 92.3 fL (80.0-100.0); Mean Platelet Volume 9.3; Monocytes # (A) 0.6 k/uL (0-1.0); Monocytes % (A) 8 %; Neutrophils # (A) 4.9 k/uL (1.3-7.7); Platelet Count 224 k/uL (150-450); RBC 4.96 m/uL (4.30-5.90); RDW 13.6 % (11.5-15.5); WBC 6.6 k/uL (3.8-10.6)
== END ==
LOC: LABWHC1 14:20
PROVIDERS: ATTEND Family Medicine
DX: U07.1 COVID-19 (principal); R53.83 Other fatigue; D72.819 Decreased white blood cell count, unspecified
CPT/HCPCS: 80053; 85025; 86769; 36415; U0003; U0005

== ENCOUNTER → 2021-01-24 | Outpatient (CLI) | payer BC ==
[2021-01-24 23:33] LABS: Chol/HDL Ratio 2.68; LDL Cholesterol,Calculated 74.6 mg/dL (0.0-131.0); VLDL Calculation 14.4 mg/dL (5.00-40.00)
== END | disposition home or self-care (01) ==
LOC: LABWHC1 09:09
PROVIDERS: ATTEND Internal Medicine Interventional Cardiology
DX: E78.2 Mixed hyperlipidemia (principal)
CPT/HCPCS: 36415; 80061; 84450; 84460

== ENCOUNTER → 2021-03-08 | Outpatient (CLI) | payer BC ==
[2021-03-08 12:07] LABS: ALT 45 U/L (10-49); AST 38 U/L (14-35)
== END | disposition home or self-care (01) ==
LOC: LABWHC1 07:58
PROVIDERS: ATTEND Internal Medicine Interventional Cardiology
DX: E78.2 Mixed hyperlipidemia (principal)
CPT/HCPCS: 36415; 84450; 84460

== ENCOUNTER → 2022-04-09 | Outpatient (CLI) | payer BC ==
[2022-04-09 10:53] LABS: Chol/HDL Ratio 2.46 Ratio; LDL Cholesterol,Calculated 63.7 mg/dL (0.0-131.0); VLDL Calculation 13.38 mg/dL (5.00-40.00)
== END | disposition home or self-care (01) ==
LOC: LABWHC1 06:56
PROVIDERS: ATTEND Nurse Practitioner Adult Health
DX: E78.2 Mixed hyperlipidemia (principal)
CPT/HCPCS: 36415; 80061

== ENCOUNTER → 2022-10-16 | Outpatient (CLI) | payer BC ==
[2022-10-16 10:57] LABS: ALT 41 U/L (10-49); AST 38 U/L (14-35); Albumin 4.2 g/dL (3.8-4.9); Albumin/Globulin Ratio 1.68 (1.60-3.17); Alkaline Phosphatase 90 U/L (41-126); BUN/Creat Ratio 18.22 Ratio (12.00-20.00); Blood Urea Nitrogen 16.4 mg/dL (9.0-27.0); Chloride 104 mmol/L (96-109); Chol/HDL Ratio 2.45 Ratio; Globulin 2.5 g/dL (1.6-3.3); Glucose 91 mg/dL (70-110); LDL Cholesterol,Calculated 55.7 mg/dL (0.0-131.0); Non-African American GFR(CKD) 90.6 (60.0-200.0); Potassium 4.6 mmol/L (3.5-5.5); Sodium 139 mmol/L (135-145); Total Protein 6.7 g/dL (6.2-8.2); VLDL Calculation 15.94 mg/dL (5.00-40.00)
== END | disposition home or self-care (01) ==
LOC: LABWHC1 06:57
PROVIDERS: ATTEND Internal Medicine Interventional Cardiology
DX: E78.2 Mixed hyperlipidemia (principal)
CPT/HCPCS: 36415; 80053; 80061

== ENCOUNTER → 2023-03-17 | Outpatient (CLI) | payer BC ==
[2023-03-17 09:58] LABS: ALT 34 U/L (4-49); AST 35 U/L (17-59); African American GFR (CKD) >90 (>60 ml/min/1.73 sqM); Albumin/Globulin Ratio 1.6; Alkaline Phosphatase 81 U/L (38-126); Anion Gap 7 mmol/L; Blood Urea Nitrogen 21 mg/dL (9-20); Carbon Dioxide 26 mmol/L (22-30); Chloride 106 mmol/L (98-107); Globulin 2.5 g/dL; Glucose 96 mg/dL (74-99); Non-African American GFR(CKD) >90 (>60 ml/min/1.73 sqM); Potassium 5.2 mmol/L (3.5-5.1); Sodium 139 mmol/L (137-145); Total Bilirubin 1.2 mg/dL (0.2-1.3); Total Protein 6.5 g/dL (6.3-8.2)
[2023-03-17 21:33] LABS: Chol/HDL Ratio 2.59 Ratio; LDL Cholesterol,Calculated 63.7 mg/dL (0.0-131.0); VLDL Calculation 16.14 mg/dL (5.00-40.00)
== END | disposition home or self-care (01) ==
LOC: LABWHC1 07:16
PROVIDERS: ATTEND Internal Medicine Interventional Cardiology
DX: E78.2 Mixed hyperlipidemia (principal)
CPT/HCPCS: 36415; 80053; 80061

== ENCOUNTER 2023-03-24 05:47 | Day surgery (SDC) | payer BC ==
[2023-03-24] MEDS ORDERED: ALPRAZolam 0.5 MG TAB PO PRN (05:56)
[2023-03-24] MEDS ORDERED: ALPRAZolam 0.25 MG TAB PO PRN (05:56)
[2023-03-24] MEDS ORDERED: ASPIRIN 325 MG TAB PO STA (05:56)
[2023-03-24] MEDS ORDERED: NITROGLYCERIN SL TABS 0.4 MG TAB SUBLINGUAL PRN ×2 (05:56→09:54)
[2023-03-24] MEDS ORDERED: SODIUM CHLORIDE 0.9% 1,000 ML IV ONE (06:05)
[2023-03-24 06:49] LABS: Basophils % (A) 0 %; Eosinophils # (A) 0.1 k/uL (0-0.7); Eosinophils % (A) 3 %; HCT 48.4 % (39.0-53.0); HGB 16.5 gm/dL (13.0-17.5); Lymphocytes # (A) 1.3 k/uL (1.0-4.8); Lymphocytes % (A) 24 %; MCH 31.9 pg (25.0-35.0); MCV 93.7 fL (80.0-100.0); Mean Platelet Volume 8.4; Monocytes # (A) 0.4 k/uL (0-1.0); Monocytes % (A) 8 %; Neutrophils # (A) 3.5 k/uL (1.3-7.7); Neutrophils % (A) 64 %; Platelet Count 210 k/uL (150-450); RBC 5.16 m/uL (4.30-5.90); RDW 13.2 % (11.5-15.5); WBC 5.5 k/uL (3.8-10.6)
[2023-03-24] MEDS ORDERED: fentaNYL (PF) 50 MCG/ML 2 ML AMP ONE (07:17)
[2023-03-24] MEDS ORDERED: HEPARIN SODIUM 1,000 UN/ML (10ML VL) ONE (07:17)
[2023-03-24] MEDS ORDERED: VERAPAMIL 2.5 MG/ML 2 ML AMP ONE (07:17)
[2023-03-24] MEDS ORDERED: fentaNYL (PF) 50 MCG/ML 2 ML AMP IV ONE (07:39)
[2023-03-24] MEDS ORDERED: LIDOCAINE 1% INJ 10MG/ML (5 ML VIAL-PF) SQ ONE (07:42)
[2023-03-24] MEDS ORDERED: VERAPAMIL SYRINGE (5 MG/10 ML) INTRAARTER ONE (07:44)
[2023-03-24] MEDS: HEPARIN SODIUM 1,000 UN/ML (10ML VL) IV ONE ×3 (07:49→08:09)
[2023-03-24] MEDS: MIDAZOLAM 2 MG/2 ML VIAL IV ONE ×2 (07:49→08:03)
[2023-03-24] MEDS ORDERED: CLOPIDOGREL 75 MG TAB ONE (08:00)
[2023-03-24] MEDS ORDERED: CLOPIDOGREL 75 MG TAB PO ONE (08:01)
[2023-03-24] MEDS ORDERED: IOPAMIDOL-370 100ML BTL INJ ONE ×3 (09:14→09:39)
[2023-03-24] MEDS ORDERED: ATROPINE SULFATE 0.1 MG/ML 10ML SYRINGE IV PRN (09:54)
[2023-03-24] MEDS ORDERED: MAG HYDROX/AL HYDROX/SIMETH 30 ML CUP PO PRN (09:54)
[2023-03-24] MEDS ORDERED: ZOLPIDEM 5 MG TAB PO PRN (09:54)
[2023-03-24] MEDS ORDERED: RX INFO: IV CONTRAST WAS GIVEN 1 EACH MISC MISCELLANE PRN (09:54)
[2023-03-24] MEDS ORDERED: SODIUM CHLORIDE 0.9% 1,000 ML in EMPTY BAG 1 BAG IV SCH (10:00)
--- NOTE | 2023-03-24 10:06 | P.CARDCATH ---
Date of Procedure: 03/24/23 Description of Procedure: Cardiac Catheterization: The patient is a 62-year-old male with a known history of hypertension, hyperlipidemia, post stenting of the LAD in September 2020 who presented with symptoms of progressive dyspnea and upper back discomfort associated with physical activity with an abnormal MPI. Recommendations were made regarding cardiac catheterization, the risks and the complications were discussed with the patient who is in full understanding and agreement. 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 Using Xylocaine Anesthesia and Seldinger technique, a 6-Anguillan sheath was introduced in the right radial artery . Subsequently, selective coronary angiography was performed using a 5-Anguillan 3.5 bend Oni catheter. Multiple views of the coronary artery including hemiaxial views were obtained. The right Oni catheter was used to cross the aortic valve and LVEDP was calculated. PCI: After removing the catheters 6-Anguillan 3.75 EBU guiding catheter was introduced and the system and after cannulating the left main, a Corsair 6-Anguillan catheter with a 0.014 BMW J-wire were introduced, it was unsuccessful in crossing the lesion, the wire was exchanged to a whisper J-wire that was unsuccessful as well. A 6-Anguillan guide liner catheter was introduced and the wire was exchanged to a Fielder XT wire that was successful in crossing the lesion and positioned distally, after removing the Corsair catheter a 1.0 x 6 mm Sapphire balloon was advanced and multiple inflations were done subsequently a 2.0 x 12 mm Treck balloon was advanced and inflations were done at 8 mckenzie. Following that the wire was removed and a [employer] rampart eye intravascular ultrasound catheter was introduced and imaging was performed. After removing the catheter 3.0 X12 mm NC Treck was advanced and multiple inflation at the maximum of 10 mckenzie were done. Subsequently a 3.0 x 38 mm Xience kristal point stent was deployed at 16 mckenzie. Repeat intravascular ultrasound imaging was performed in the 40 by 12 mm NC Treck was advanced to the mid segment of the stent and inflation at 10 mckenzie were done after removing the balloon a 4.5 x 12 mm NC Treck was advanced and when inflation in the proximal segment of the stent at 10 mckenzie with time. Repeat intravascular ultrasound was performed. Subsequently the wire was removed and image was obtained and revealed stable successful stenting. Following that, catheter and sheath were removed. Hemostasis was obtained with deployment of TR band . There was no immediate complication. Patient was returned to room in stable condition. Of note, the patient received a total of 10,500 units of intravenous heparin as well as intra-arterial verapamil. He received an oral load of clopidogrel. His ACT was monitored. He had chest discomfort that resolved at the end of the procedure. Findings: Left main: This is a large size vessel, bifurcating into LAD and left circumflex, left main has no high-grade stenosis LAD: In this vessel is totally occluded proximally with minimal antegrade flow, the mid and distal vessel shows no significant obstructive disease Left circumflex: This is a large dominant vessel, giving rise to a very proximal obtuse marginal branch and distally bifurcating into PDA and PLV, the second obtuse marginal branch is large in caliber. The left circumflex and its branches have no obstructive disease RCA: This is a small nondominant vessel that has no obstructive disease and gives contralateral collaterals to the LAD through the septal patient support assistant Left Ventriculogram: Not performed Hemodynamics: There was no gradient across the aortic valve, LVEDP was 16-20 mmHg Conclusion: 1. Chronic total occlusion of the proximal LAD in the prior stented segment with ipsilateral and contralateral collateral 2. No obstructive disease in the RCA and left circumflex 3. Successful stenting of chronic total occlusion of the LAD with intravascular ultrasound imaging with reduction of stenosis from 100% to less than 5% Recommendations: The patient will continue on aspirin and Plavix for 6 months without any interruption in addition to aggressive coronary risks modifications.. The findings and the recommendations were discussed with the patient and the family and they were in full understanding and agreement. Duration of sedation is 1:15 minutes.
[2023-03-24 12:10] VITALS: BMI 30.7
[2023-03-24] MEDS: SODIUM CHLORIDE 0.9% 1,000 ML in EMPTY BAG 1 BAG IV SCH ×2 (15:24→18:37)
[2023-03-25] MEDS: SODIUM CHLORIDE 0.9% 1,000 ML in EMPTY BAG 1 BAG IV SCH (00:54)
[2023-03-25 06:41] LABS: African American GFR (CKD) >90 (>60 ml/min/1.73 sqM); Anion Gap 6 mmol/L; Blood Urea Nitrogen 14 mg/dL (9-20); Calcium 8.5 mg/dL (8.4-10.2); Carbon Dioxide 24 mmol/L (22-30); Chloride 107 mmol/L (98-107); Glucose 84 mg/dL (74-99); Non-African American GFR(CKD) >90 (>60 ml/min/1.73 sqM); Sodium 137 mmol/L (137-145)
[2023-03-25 06:49] LABS: Potassium 5.7 mmol/L (3.5-5.1)
[2023-03-25 07:58] VITALS: BP 126/79; RESP 16; TEMP 98
[2023-03-25] MEDS: ATORVASTATIN 40 MG TAB PO SCH ×2 (08:01→08:03)
[2023-03-25] MEDS: ASPIRIN 81 MG PO SCH ×2 (08:01→08:03)
--- NOTE | 2023-03-25 08:58 | P.PN ---
Subjective Progress Note Date: 03/25/23 PROGRESS NOTE The patient is a 62-year-old male with a known history of hypertension, hyperlipidemia, CAD who presented with exertional chest discomfort and progressive dyspnea and an abnormal MPI. He underwent cardiac catheterization and was found to have total occlusion of the LAD proximally, underwent stenting of that vessel. He's feeling well this morning. He denies any chest discomfort and he feels that his breathing is better. He denies any dizziness or palpitations. He is in sinus mechanism. Medications: Aspirin, Lipitor 40 mg daily, Plavix 75 mg daily PHYSICAL EXAMINATION: Blood pressure 126/70 heart rate 60 LUNGS: Clear to auscultation HEART: Regular rate and rhythm, S1, S2. No S3. No systolic murmur ABDOMEN: Soft, nontender, no organomegaly EXTREMETIES: No edema, right radial pulse intact LAB: BUN 14, creatinine 0.78 potassium 5.7. EKG sinus mechanism with no acute ST segment changes IMPRESSION: 1. Status post stenting of chronic total occlusion of the LAD 2. Hyperlipidemia PLAN: 1. Continue present therapy 2. Increase physical activity 3. Discharged home today 4. And follow-up in one week Objective - Vital Signs Vital signs: Vital Signs Temp 98.0 F 03/25/23 07:00 Pulse 65 03/25/23 07:00 Resp 16 03/25/23 07:00 BP 126/79 03/25/23 07:00 Pulse Ox 99 03/25/23 07:00 FiO2 Intake & Output 03/24/23 03/25/23 03/25/23 18:59 06:59 18:59 Intake Total 640 236 Balance 640 236 Weight 100.1 kg Intake: IV 400 Oral 240 236 Other: Voiding Method Toilet # Voids 1 5 - Labs CBC & Chem 7: 03/24/23 06:25 03/25/23 05:32 Labs: Abnormal Lab Results - Last 24 Hours (Table) 03/25/23 Range/Units 05:32 Potassium 5.7 H (3.5-5.1) mmol/L
[2023-03-25] MEDS ORDERED: CLOPIDOGREL 75 MG TAB PO SCH (09:00)
[2023-03-25 09:19] VITALS: PULSE 68
== END 2023-03-25 10:26 | disposition home or self-care (01) ==
LOC: CATHCVL 05:47 → 6NMEDSUR 09:36 → CATHCVL 03-25 10:26
PROVIDERS: ATTEND Internal Medicine Interventional Cardiology
DX: I25.10 Atherosclerotic heart disease of native coronary artery without angina pectoris (principal); I25.82 Chronic total occlusion of coronary artery; I25.9 Chronic ischemic heart disease, unspecified; I10 Essential (primary) hypertension; E78.2 Mixed hyperlipidemia; F10.20 Alcohol dependence, uncomplicated; Z87.891 Personal history of nicotine dependence; Z79.01 Long term (current) use of anticoagulants; Z79.82 Long term (current) use of aspirin; Z79.02 Long term (current) use of antithrombotics/antiplatelets; Z79.899 Other long term (current) drug therapy
CPT/HCPCS: 92978; 93458; 80048; 84132; 85025; 99152; 99153 ×4; C9600; C1769 ×5; C1887 ×2; C1894; C1753; C1725 ×4; C1874; C1751; J2250; J2001; J3010; J1644; Q9967

== ENCOUNTER → 2024-01-04 | Outpatient (CLI) | payer BC ==
[2024-01-04 11:04] LABS: ALT 32 U/L (10-49); AST 27 U/L (14-35); Chol/HDL Ratio 2.63 Ratio; LDL Cholesterol,Calculated 73.8 mg/dL (0.0-131.0); VLDL Calculation 13.62 mg/dL (5.00-40.00)
== END | disposition home or self-care (01) ==
LOC: LABWHC1 06:49
PROVIDERS: ATTEND Internal Medicine Interventional Cardiology
DX: E78.2 Mixed hyperlipidemia (principal)
CPT/HCPCS: 36415; 80061; 84450; 84460

== ENCOUNTER → 2024-07-13 | Outpatient (CLI) | payer BC ==
[2024-07-13 10:53] LABS: BUN/Creat Ratio 14.56 Ratio (12.00-20.00); Blood Urea Nitrogen 13.1 mg/dL (9.0-27.0); Chloride 106 mmol/L (96-109); Glucose 97 mg/dL (70-110); LDL Cholesterol,Calculated 48.4 mg/dL (0.0-131.0); Potassium 4.7 mmol/L (3.5-5.5); Sodium 141 mmol/L (135-145); VLDL Calculation 15.96 mg/dL (5.00-40.00)
[2024-07-13 10:54] LABS: ALT 48 U/L (10-49); AST 35 U/L (14-35); Albumin 4.3 g/dL (3.8-4.9); Albumin/Globulin Ratio 2.15 Ratio (1.60-3.17); Alkaline Phosphatase 72 U/L (41-126); Calcium 8.8 mg/dL (8.7-10.3); Total Bilirubin 0.8 mg/dL (0.3-1.2); Total Protein 6.3 g/dL (6.2-8.2)
== END | disposition home or self-care (01) ==
LOC: LABWHC1 06:47
PROVIDERS: ATTEND Family Medicine
CPT/HCPCS: 36415; 80053; 80061